=== PATIENT | male | born 1955 | race African-American/Black ===

== ENCOUNTER 2016-06-02 16:09 | Inpatient (IN) | payer OTHER ==
[~2016-06-02] VITALS: Ht 180.3 cm; Wt 95.7 kg
[2016-06-02 16:16] VITALS: BP 122/83; PULSE 91; TEMP 98.6
[2016-06-02] MEDS ORDERED: TENORMIN 5050 MG/TAB PO (16:54)
[2016-06-02] MEDS ORDERED: LIPITOR 40MG TA40 MG PO (16:55)
[2016-06-02] MEDS ORDERED: MASON NATURAL1000 MG PO (16:55)
[2016-06-02] MEDS ORDERED: GLUCOTROL XL2.5 MG PO (16:55)
[2016-06-02] MEDS ORDERED: MICARDIS HCT 121 TA1 PO (16:56)
[2016-06-02] MEDS ORDERED: JANUVIA 100MG100 MG PO (16:56)
[2016-06-02] MEDS ORDERED: NATURE'S BLEN2000 IU PO (16:57)
[2016-06-02] MEDS ORDERED: ASPIRIN 81M81 MG/TA2 PO (16:58)
[2016-06-02 20:41] VITALS: BP 116/67; PULSE 97; TEMP 98.6
[2016-06-03] VITALS (8 sets, daily range): BP systolic 110–151; BP diastolic 66–95; PULSE 69–97; TEMP 97.3–99.4
[2016-06-03 08:35] LABS: ADJUSTED CALCIUM 9.5 mg/dL (8.4-10.2); ALBUMIN 3.3 gm/dL (3.5-5.0); CALCIUM 8.9 mg/dL (8.4-10.2); CREATININE, serum 2.1 mg/dL (0.66-1.25); MAGNESIUM 1.6 mg/dL (1.6-2.3); POTASSIUM 3.9 mmol/L (3.4-5.0); TOTAL PROTEIN 6.5 gm/dL (6.4-8.2)
[2016-06-03 09:04] LABS: THYROID STIMULATING HORMONE 1.1 uIU/mL (0.465-4.680)
[2016-06-04 04:20] VITALS: BP 136/85; PULSE 78; TEMP 99.4
[2016-06-04 08:00] VITALS: BP 113/71; PULSE 74; TEMP 99
[2016-06-04] MEDS ORDERED: GLUCOTROL10 MG PO (10:26)
[2016-06-04 12:41] VITALS: BP 128/86; PULSE 72; TEMP 99.1
[2016-06-04 18:24] LABS: PH 5 (5-8); SQUAMOUS EPITHELIAL 0-2 /hpf; URINE APPEARANCE Clear; URINE BACTERIA None Seen /hpf; URINE BILIRUBIN Negative (NEGATIVE); URINE BLOOD Negative (NEGATIVE); URINE COLOR Yellow; URINE GLUCOSE 3+ (NEGATIVE); URINE KETONE Trace (NEGATIVE); URINE RBC 0-2 /hpf; URINE UROBILINOGEN >=4.0 mg/dL (NEGATIVE); URINE WBC 0-2 /hpf
== END 2016-06-04 17:00 | disposition home or self-care (01) | DRG 639 ==
LOC: MEDICAL 16:09
PROVIDERS: Internal Medicine; Physician Assistant
DX: E11.65 Type 2 diabetes mellitus with hyperglycemia (principal); E87.5 Hyperkalemia; I12.9 Hypertensive chronic kidney disease with stage 1 through stage 4 chronic kidney disease, or unspecified chronic kidney disease; E11.22 Type 2 diabetes mellitus with diabetic chronic kidney disease; N18.9 Chronic kidney disease, unspecified
CPT/HCPCS: 99232-AI; 99239; J1650; J1815; J7030